=== PATIENT | female | born 1985 | race Asian ===

== ENCOUNTER 2018-03-27 10:12 | Inpatient (IN) ==
[2018-03-30 07:19] VITALS: BP 160/94
== END 2018-03-30 14:20 | disposition home or self-care (01) | DRG 766 ==
LOC: N.LD 10:12 → N.OB 03-28 18:35
PROVIDERS: ADMIT Obstetrics & Gynecology; ATTEND Obstetrics & Gynecology

== ENCOUNTER 2018-04-06 16:27 | Inpatient (IN) ==
[2018-04-06] MEDS: LABETALOL 200 MG TABLET PO SCH ×2 (16:50→21:14)
[2018-04-06] MEDS: LACTATED RINGERS 1,000 ML IV SCH (16:50)
[2018-04-06] MEDS: hydrALAZINE 20 MG/1 ML VIAL IV PRN (18:10)
[2018-04-06 18:49] LABS: Basophils % 0.2 % (0.0-0.8); Eosinophils # 0.1 10*3/uL (0.0-0.87); Eosinophils % 0.7 % (0.00-10.9); Hematocrit 36.5 VOL% (35.7-47.0); Hemoglobin 11.5 GM/DL (12.0-16.0); Immature Granulocytes % 2.1 %; Immature Granulocytes Absolute 0.19 #; Lymphocytes # 3.3 10*3/uL (1.4-4.0); Lymphocytes % 36.2 % (21.3-54.2); Mean Corpuscular HGB Conc 31.5 GM/DL (32-36); Mean Corpuscular Hemoglobin 27 PG (27-34); Mean Corpuscular Volume 84.5 FL (87-102); Mean Platelet Volume 8.9 FL (9.6-12.0); Monocytes # 0.7 10*3/uL (0.11-0.8); Monocytes % 7.8 % (1.7-12.7); Neutrophils # 4.9 10*3/uL (1.4-7.4); Platelet Count 531 T/CUMM (130-400); Red Blood Count 4.32 MC/CUMM (3.8-5.5); Red Cell Distribution Width 17.5 % (9.3-17.3); White Blood Count 9.1 T/CUMM (4-12)
[2018-04-06 18:58] LABS: INR 0.9; PT Patient Result 9.9 SECS; Partial Thromboplastin Time 27.8 SECS (0-40)
[2018-04-06 19:18] LABS: Alanine Aminotransferase 25 U/L (13-56); Albumin 3.2 G/DL (3.4-5.0); Alkaline Phosphatase 81 U/L (45-117); Aspartate Amino Transferase 15 U/L (0-37); Bilirubin,Total < 0.39 MG/DL (0.2-1.0); Blood Urea Nitrogen 10 MG/DL (7-18); Calcium 8.7 MG/DL (8.5-10.1); Glucose 97 MG/DL (74-106); Osmolality,Calculated 277.4 MOS/KG (273-304); Potassium 3.1 MMOL/L (3.5-5.1); Sodium 140 MMOL/L (136-145); Total Protein 7.4 G/DL (6.4-8.3); Uric Acid 7.6 MG/DL (2.6-6.0)
[2018-04-07] MEDS: LACTATED RINGERS 1,000 ML IV SCH ×2 (01:55→09:14)
[2018-04-07] MEDS: hydrALAZINE 20 MG/1 ML VIAL IV PRN (08:07)
[2018-04-07] MEDS: METHYLDOPA 500 MG TABLET PO SCH ×3 (08:57→20:29)
[2018-04-07] MEDS: POTASSIUM CHLORIDE 20 MEQ TABLET PO PRN ×5 (08:57→22:33)
[2018-04-07] MEDS: LABETALOL 200 MG TABLET PO SCH ×2 (08:57→20:26)
[2018-04-08] MEDS: hydrALAZINE 20 MG/1 ML VIAL IV PRN (08:21)
[2018-04-08] MEDS: METHYLDOPA 500 MG TABLET PO SCH ×3 (08:50→20:32)
[2018-04-08] MEDS: LABETALOL 200 MG TABLET PO SCH ×2 (08:54→20:32)
[2018-04-09] MEDS: METHYLDOPA 500 MG TABLET PO SCH (08:52)
[2018-04-09] MEDS: LABETALOL 200 MG TABLET PO SCH (08:52)
[2018-04-09 12:11] VITALS: BP 130/77
== END 2018-04-09 13:20 | disposition home or self-care (01) | DRG 776 ==
LOC: N.OBOUT 16:27 → N.OB 16:29
PROVIDERS: ADMIT Obstetrics & Gynecology; ATTEND Obstetrics & Gynecology